=== PATIENT | female | born 1975 | race Two or more races ===

== ENCOUNTER 2020-03-16 01:48 | Emergency (ER) | payer SELFPAY ==
[~2020-03-16] VITALS: Ht 160 cm; Wt 75.6 kg
[2020-03-16 01:52] VITALS: BP 115/71
[2020-03-16] MEDS ORDERED: MAALOX/HYOSCYAMINE/LIDOCAINE 45 ML BTL ONE (02:15)
--- NOTE | 2020-03-16 02:17 | NUR ---
REPORT GIVEN TO MINNIE TIMMONS
[2020-03-16 02:27] LABS: BASOPHILS # (AUTO) 0.12 x10^3/uL (0-0.1); BASOPHILS % (AUTO) 1 % (0-1); EOSINOPHILS # (AUTO) 0.24 x10^3/uL (0-0.4); EOSINOPHILS % (AUTO) 2 % (1-7); LYMPHOCYTES # (AUTO) 3.12 x10^3/uL (1-3.4); LYMPHOCYTES % (AUTO) 28 % (22-44); MD NO; MEAN CORPUSCULAR HGB CONC 33.5 g/dL (32.4-35.8); MEAN CORPUSCULAR VOLUME 86.6 fL (80-100); MEAN PLATELET VOLUME 8.3 fL (7.4-10.4); MONOCYTES # (AUTO) 0.73 x10^3/uL (0.2-0.8); MONOCYTES % (AUTO) 7 % (2-9); NEUTROPHILS # (AUTO) 6.84 x10^3/uL (1.8-6.8); NEUTROPHILS % (AUTO) 62 % (42-75); PLATELET COUNT 328 x10^3/uL (130-400); RED BLOOD COUNT 4.47 x10^6/uL (3.82-5.3); RED CELL DISTRIBUTION WIDTH 13.7 % (9.6-15.2)
[2020-03-16 02:30] LABS: ALANINE AMINOTRANSFERASE 28 U/L (12-78); ANION GAP 9 mmol/L (5-15); CALCIUM 8.6 mg/dL (8.5-10.1); CHLORIDE 111 mmol/L (98-107)
[2020-03-16] MEDS ORDERED: MAALOX/HYOSCYAMINE/LIDOCAINE 45 ML BTL PO ONE (02:30)
[2020-03-16 02:35] LABS: ALKALINE PHOSPHATASE 65 U/L (45-117); BILIRUBIN,TOTAL 0.3 mg/dL (0.2-1.0); CREATININE 0.63 mg/dL (0.55-1.02); TOTAL PROTEIN 7.9 g/dL (6.4-8.2)
[2020-03-16] MEDS ORDERED: KETOROLAC 30 MG/1 ML ONE (03:38)
[2020-03-16] MEDS ORDERED: KETOROLAC 30 MG/1 ML IM ONE (04:00)
== END 2020-03-16 04:38 | disposition home or self-care (01) ==
LOC: ED 02:37
DX: R07.89 Other chest pain (principal)
CPT/HCPCS: 36415; 71045; 80053; 83690; 84703; 85025; 93005; 96372; 99285; J1885